=== PATIENT | female | born 1955 | race African-American/Black ===

== ENCOUNTER 2024-02-22 10:47 | Inpatient (IN) | payer MEDICARE, MEDICAID ==
[~2024-02-22] VITALS: Ht 172.7 cm; Wt 149.2 kg
[2024-02-22 11:43] LABS: BASOPHILS % 0.8 % (0.0-2.0); EOSINOPHILS % 0.6 % (0.0-5.0); HEMOGLOBIN. 14.3 g/dL (12.0-16.0); LYMPHOCYTES % 30.9 % (20.0-50.0); MEAN CORPUSCULAR HEMOGLOBIN 27.5 pg (28.0-32.0); MEAN CORPUSCULAR HGB CONC 32.4 g/dL (31.0-37.0); MEAN CORPUSCULAR VOLUME 84.7 fL (81.0-99.0); MEAN PLATELET VOLUME 8.7 fl (7.4-10.4); MONOCYTES % 8.8 % (2.0-8.0); NEUTROPHILS % 58.9 % (40.0-76.0); PLATELET 164 x1000/uL (130-400); RED BLOOD CELL COUNT 5.19 mill/uL (4.2-5.4); RED CELL DISTRIBUTION WIDTH 13.5 % (11.6-14.6); WHITE BLOOD COUNT 4.5 x1000/uL (4.5-11.0)
[2024-02-22 11:55] LABS: INR 1.1; PROTHROMBIN TIME 12.6 sec (9.6-11.0)
[2024-02-22 12:05] LABS: CHLORIDE 100 mEq/L (98-107); POTASSIUM 3.5 mEq/L (3.5-5.1); SODIUM 139 mEq/L (136-145)
[2024-02-22 12:07] LABS: CALCIUM 10.5 mg/dL (8.7-10.4); CARBON DIOXIDE 33 mEq/L (21-32)
[2024-02-22 12:11] LABS: LACTIC ACID 2.3 mmol/L (0.4-2.0); TROPONIN I HIGH SENSITIVITY 19 ng/L (3.0-34)
[2024-02-22 12:12] LABS: CREATININE 1.2 mg/dL (0.6-1.0); GLUCOSE 116 mg/dL (70-105); UREA NITROGEN BLOOD 14 mg/dL (9-23)
[2024-02-22 12:13] LABS: ALBUMIN 4.4 g/dL (3.2-4.8)
[2024-02-22 12:14] LABS: ALANINE AMINOTRANSFERASE 13 IU/L (10-49); ASPARTATE AMINOTRANSFERASE 20 IU/L (<34); BILIRUBIN DIRECT 0.3 mg/dL (<=3.0); BILIRUBIN TOTAL 1.2 mg/dL (0.1-1.0); PROTEIN TOTAL 8.1 g/dL (6.0-8.3)
[2024-02-22] MEDS ORDERED: AZITHROMYCIN 500MG/250ML 250 ML IV STA (12:24)
[2024-02-22] MEDS ORDERED: CEFTRIAXONE 2GM/50ML 50 ML IV ONE (12:30)
[2024-02-22 12:42] VITALS: PULSE 93; RESP 20
[2024-02-22] MEDS: IPRATROPIUM/ALBUTEROL 0.5-3(2.5)MG/3ML NEB HHN ONE (12:42)
[2024-02-22] MEDS: METHYLPREDNISOLONE SOD SUCC 125MG/2ML (ACT-O-VIAL) IV ONE (13:15)
[2024-02-22 13:19] LABS: CLARITY URINE CLEAR (CLEAR); COLOR URINE YELLOW (YELLOW); GLUCOSE URINE 3+ (NEGATIVE); KETONES URINE NEGATIVE (NEGATIVE); LEUKOCYTE ESTERASE URINE NEGATIVE (NEGATIVE); NITRITE URINE NEGATIVE (NEGATIVE); OCCULT BLOOD URINE NEGATIVE (NEGATIVE); PH URINE 7.5 (4.5-8.0); PROTEIN URINE 2+ (NEGATIVE); SPECIFIC GRAVITY URINE 1.013 (1.005-1.030); UROBILINOGEN URINE 0.2 E.U./dL (0.2-1.0)
[2024-02-22] MEDS: CEFTRIAXONE 2GM/50ML 50 ML IV NR (13:20)
[2024-02-22] MEDS: FUROSEMIDE 40MG/4ML VIAL IVP ONE (13:30)
[2024-02-22 13:47] LABS: BACTERIA URINE 1+; HYALINE CASTS URINE 0-5 /lpf; RBC URINE 0-2 /hpf (0-2); SQUAMOUS EPITHELIAL CELL URINE 1+ /lpf (RARE/1+); WBC URINE 0-2 /hpf (0-2); YEAST URINE NONE SEEN
[2024-02-22] MEDS: AZITHROMYCIN 500 MG TABLET PO NR (14:41)
[2024-02-22 16:22] LABS: TROPONIN I HIGH SENSITIVITY 21 ng/L (3.0-34)
[2024-02-22] MEDS ORDERED: EMPA10TA PO (16:56)
[2024-02-22] MEDS ORDERED: AMLO10TA80 PO (16:56)
[2024-02-22] MEDS ORDERED: FURO40TA5 PO (16:56)
[2024-02-22] MEDS ORDERED: ONDANSETRON HCL 4MG/2ML INJ IV PRN (17:00)
[2024-02-22] MEDS ORDERED: DOCUSATE SODIUM 100MG CAPSULE PO PRN (17:00)
[2024-02-22] MEDS ORDERED: APIX5TAB PO (17:33)
[2024-02-22] MEDS: PANTOPRAZOLE SODIUM 40 MG/VIAL IV SCH (17:45)
[2024-02-22] MEDS: LOSARTAN 50 MG TABLET PO SCH (17:45)
[2024-02-22] MEDS: HYDRALAZINE 20MG/ML VIAL IV PRN (17:46)
[2024-02-22] MEDS ORDERED: BUDESONIDE 0.25MG/2ML NEB HHN SCH (18:00)
[2024-02-22 18:11] LABS: CREATINE KINASE 125 IU/L (34-145); PHOSPHORUS 2.6 mg/dL (2.5-4.9)
[2024-02-22] MEDS ORDERED: DEXTROSE 50% WATER 50ML SYRINGE IV PRN (18:45)
[2024-02-22 19:00] LABS: BG BASE EXCESS 3.3 mmol/L (-2.0-3.0); BG CARBOXYHEMOGLOBIN 1.4 % (0.5-1.5); BG DEOXYHEMOGLOBIN 2.7 % (0.0-5.0); BG FRACTION INSPIRED OXYGEN 21; BG METHEMOGLOBIN 0.3 % (0.5-1.5); BG OXYGEN SATURATION 97.3 % (94.0-98.0); BG OXYHEMOGLOBIN 95.6 % (94.0-98.0); BG PH 7.502 (7.350-7.450); BG PO2 84.8 mmHg (83.0-108.0); BG SAMPLE SITE RIGHT RADIAL; BG TOTAL HEMOGLOBIN 15.3 g/dL (12.0-16.0); BG VENT MODE ROOM AIR
[2024-02-22] MEDS: EMPAGLIFLOZIN 10MG TABLET PO SCH (19:12)
[2024-02-22] MEDS: INSULIN LISPRO 100 UNITS/ML SUBCUT SCH (21:00)
[2024-02-22] MEDS ORDERED: ENOXAPARIN 40MG/0.4ML SYR SUBCUT SCH (21:00)
[2024-02-22] MEDS: ACETAMINOPHEN 325MG TABLET PO PRN (21:36)
[2024-02-23] VITALS (7 sets, daily range): BP systolic 116–185; BP diastolic 64–111; PULSE 57–81; RESP 16–20; TEMP 36.3918–37.503; O2SAT 95–100
[2024-02-23] MEDS: BLOOD SUGAR DIAGNOSTIC STRIP TEST SCH (01:50)
[2024-02-23] MEDS: HYDRALAZINE 20MG/ML VIAL IV NR (04:16)
[2024-02-23] MEDS ORDERED: METO-411 PO (07:08)
[2024-02-23 07:24] LABS: POTASSIUM 3.4 mEq/L (3.5-5.1)
[2024-02-23 07:25] LABS: CALCIUM 10.5 mg/dL (8.7-10.4)
[2024-02-23 07:30] LABS: CREATININE 1.5 mg/dL (0.6-1.0)
[2024-02-23 07:34] LABS: THYROID STIMULATING HORMONE 1.24 uIU/mL (0.55-4.78)
[2024-02-23] MEDS: APIXABAN 5 MG TABLET PO SCH (09:00)
[2024-02-23] MEDS ORDERED: AZITHROMYCIN 500 MG TABLET PO SCH (09:00)
[2024-02-23] MEDS: AZITHROMYCIN 250 MG TABLET PO SCH (09:43)
[2024-02-23 09:44] LABS: *AMPHETAMINES SCREEN URINE NEGATIVE (NEGATIVE); *BARBITURATES SCREEN URINE NEGATIVE (NEGATIVE); *BENZODIAZEPINES SCREEN URINE NEGATIVE (NEGATIVE)
[2024-02-23 09:45] LABS: *COCAINE SCREEN URINE NEGATIVE (NEGATIVE); CANNABINOID URINE SCREEN NEGATIVE (NEGATIVE); ECSTASY MDMA SCREEN URINE NEGATIVE (NEGATIVE); METHADONE URINE SCREEN NEGATIVE (NEGATIVE); OPIATES URINE SCREEN NEGATIVE (NEGATIVE); PHENCYCLIDINE URINE SCREEN NEGATIVE (NEGATIVE)
[2024-02-23] MEDS ORDERED: CEFTRIAXONE 2GM/50ML 50 ML IV SCH (14:00)
[2024-02-23] MEDS ORDERED: POTASSIUM CHLORIDE 20 MEQ in DEXT 5% WATER 90 ML IV NR (15:00)
[2024-02-23 16:06] LABS: BASOPHILS % 0.5 % (0.0-2.0); EOSINOPHILS % 0.1 % (0.0-5.0); HEMATOCRIT. 45.2 % (36.0-48.0); HEMOGLOBIN. 14.5 g/dL (12.0-16.0); LYMPHOCYTES % 22.1 % (20.0-50.0); MEAN CORPUSCULAR HEMOGLOBIN 27.3 pg (28.0-32.0); MEAN CORPUSCULAR HGB CONC 32.1 g/dL (31.0-37.0); MEAN PLATELET VOLUME 9.4 fl (7.4-10.4); MONOCYTES % 8.4 % (2.0-8.0); NEUTROPHILS % 68.9 % (40.0-76.0); PLATELET 186 x1000/uL (130-400); RED BLOOD CELL COUNT 5.32 mill/uL (4.2-5.4); RED CELL DISTRIBUTION WIDTH 13.9 % (11.6-14.6); WHITE BLOOD COUNT 7.6 x1000/uL (4.5-11.0)
[2024-02-23] MEDS: ASPIRIN 325MG EC TABLET PO NR (17:00)
[2024-02-23] MEDS: FUROSEMIDE 40MG/4ML VIAL IVP SCH (17:36)
[2024-02-23] MEDS: KCL 20MEQ/100ML PREMIX 100 ML IV NR (17:44)
[2024-02-23] MEDS ORDERED: ATORVASTATIN CALCIUM 40MG TABLET PO SCH (21:00)
[2024-02-23] MEDS ORDERED: SACUBITRIL/VALSARTAN 24MG/26MG TABLET PO SCH (21:00)
[2024-02-23] MEDS: ATORVASTATIN CALCIUM 40MG TABLET PO SCH (22:02)
[2024-02-23] MEDS: CLOPIDOGREL 75MG TABLET PO SCH (22:03)
[2024-02-24 00:30] VITALS: BP 123/111; PULSE 75; RESP 20; TEMP 36.2512
[2024-02-24 04:00] VITALS: BP 137/108; PULSE 88; RESP 18; TEMP 36.22512; O2SAT 100
[2024-02-24 08:00] VITALS: BP 143/98; PULSE 73; RESP 17; TEMP 36.3918; O2SAT 95
[2024-02-24] MEDS ORDERED: METOPROLOL SUCCINATE 50MG ER TABLET PO SCH (09:00)
[2024-02-24] MEDS: ENTRESTO PO SCH (09:00)
[2024-02-24] MEDS ORDERED: SACU1TAB PO (09:45)
[2024-02-24] MEDS ORDERED: ALBU18HF2 IH (09:45)
[2024-02-24] MEDS ORDERED: UMEC1DIS INH (09:45)
[2024-02-24] MEDS: METOPROLOL TARTRATE 25MG TABLET PO SCH (11:16)
[2024-02-24] MEDS: AMLODIPINE 5MG TABLET PO SCH (11:16)
[2024-02-24] MEDS: ASPIRIN 81MG TABLET PO SCH (11:25)
[2024-02-24] MEDS: PANTOPRAZOLE 40MG DR TABLET PO SCH (11:25)
[2024-02-24] MEDS: HYDRALAZINE HCL 10MG TABLET PO PRN (11:26)
[2024-02-24] MEDS: EMPAGLIFLOZIN 10MG TABLET PO SCH (11:32)
[2024-02-24 12:00] VITALS: PULSE 102; RESP 20; TEMP 36.6696; O2SAT 91
[2024-02-24] MEDS ORDERED: ASPIRIN 81MG TABLET PO SCH (12:15)
[2024-02-24 16:00] VITALS: PULSE 71; RESP 20; TEMP 36.78072; O2SAT 96
[2024-02-24] MEDS: ACETAMINOPHEN 325MG TABLET PO PRN (18:23)
[2024-02-24 20:00] VITALS: BP 122/56; PULSE 54; RESP 18; TEMP 36.6696; O2SAT 98
[2024-02-24 22:06] LABS: BASOPHILS % 0.4 % (0.0-2.0); CHLORIDE 99 mEq/L (98-107); EOSINOPHILS % 0.7 % (0.0-5.0); HEMATOCRIT. 41.1 % (36.0-48.0); HEMOGLOBIN. 13.3 g/dL (12.0-16.0); LYMPHOCYTES % 33.9 % (20.0-50.0); MEAN CORPUSCULAR HEMOGLOBIN 27.3 pg (28.0-32.0); MEAN CORPUSCULAR HGB CONC 32.2 g/dL (31.0-37.0); MEAN CORPUSCULAR VOLUME 84.6 fL (81.0-99.0); MEAN PLATELET VOLUME 9.3 fl (7.4-10.4); MONOCYTES % 9.7 % (2.0-8.0); NEUTROPHILS % 55.3 % (40.0-76.0); PLATELET 164 x1000/uL (130-400); POTASSIUM 2.9 mEq/L (3.5-5.1); RED BLOOD CELL COUNT 4.86 mill/uL (4.2-5.4); RED CELL DISTRIBUTION WIDTH 13.8 % (11.6-14.6); SODIUM 137 mEq/L (136-145); WHITE BLOOD COUNT 5.1 x1000/uL (4.5-11.0)
[2024-02-24 22:08] LABS: CARBON DIOXIDE 29 mEq/L (21-32)
[2024-02-24 22:09] LABS: CALCIUM 9.5 mg/dL (8.7-10.4)
[2024-02-24 22:13] LABS: CREATININE 1.6 mg/dL (0.6-1.0); GLUCOSE 108 mg/dL (70-105)
[2024-02-24 22:14] LABS: UREA NITROGEN BLOOD 30 mg/dL (9-23)
[2024-02-24 22:15] LABS: ALANINE AMINOTRANSFERASE 16 IU/L (10-49); ALBUMIN 3.4 g/dL (3.2-4.8); ASPARTATE AMINOTRANSFERASE 29 IU/L (<34)
[2024-02-24 22:16] LABS: BILIRUBIN DIRECT 0.3 mg/dL (<=3.0); BILIRUBIN TOTAL 0.9 mg/dL (0.1-1.0); PROTEIN TOTAL 6.3 g/dL (6.0-8.3)
[2024-02-24 22:30] LABS: HEPATITIS B SURFACE ANTIGEN NEGATIVE (Negative)
[2024-02-24 22:51] LABS: HEPATITIS C AB NON REACTIVE (Neg) (Negative)
[2024-02-25] VITALS: BP 116/88; PULSE 69; RESP 22; TEMP 36.72516; O2SAT 99
[2024-02-25] MEDS: POTASSIUM CHLORIDE 20MEQ TABLET SR PO NR ×2 (03:17→09:51)
[2024-02-25] MEDS: KCL 20MEQ/100ML PREMIX 100 ML IV SCH (03:41)
[2024-02-25 04:00] VITALS: BP 114/85; PULSE 67; RESP 25; TEMP 36.55848; O2SAT 100
[2024-02-25 08:00] VITALS: BP 118/78; PULSE 59; RESP 23; TEMP 36.6696; O2SAT 94
[2024-02-25] MEDS: GUAIFENESIN 200MG/10ML SUGAR FREE UDC PO PRN (08:41)
[2024-02-25 11:53] LABS: BASOPHILS % 0.5 % (0.0-2.0); DIFFERENTIAL COMMENT 0; EOSINOPHILS % 1.1 % (0.0-5.0); HEMOGLOBIN. 14.9 g/dL (12.0-16.0); LYMPHOCYTES % 38.5 % (20.0-50.0); MEAN CORPUSCULAR HEMOGLOBIN 27.1 pg (28.0-32.0); MEAN CORPUSCULAR HGB CONC 31.7 g/dL (31.0-37.0); MEAN CORPUSCULAR VOLUME 85.7 fL (81.0-99.0); MEAN PLATELET VOLUME 9.1 fl (7.4-10.4); MONOCYTES % 11.8 % (2.0-8.0); NEUTROPHILS % 48.1 % (40.0-76.0); PLATELET 182 x1000/uL (130-400); RED BLOOD CELL COUNT 5.48 mill/uL (4.2-5.4); RED CELL DISTRIBUTION WIDTH 13.9 % (11.6-14.6); WHITE BLOOD COUNT 5.4 x1000/uL (4.5-11.0)
[2024-02-25 12:00] VITALS: BP 111/69; PULSE 59; RESP 16; TEMP 36.61404; O2SAT 96
[2024-02-25 12:12] LABS: POTASSIUM 3.7 mEq/L (3.5-5.1)
[2024-02-25 12:13] LABS: POTASSIUM 3.8 mEq/L (3.5-5.1)
[2024-02-25 12:15] LABS: CALCIUM 9.9 mg/dL (8.7-10.4)
[2024-02-25 12:19] LABS: CREATININE 1.5 mg/dL (0.6-1.0)
[2024-02-25] MEDS ORDERED: LORAZEPAM 2MG/ML INJ IV NR (14:30)
[2024-02-25 16:00] VITALS: BP 115/71; PULSE 66; RESP 20; TEMP 36.6696; O2SAT 97
[2024-02-25 20:00] VITALS: BP 106/68; PULSE 66; RESP 22; TEMP 36.50292; O2SAT 96
[2024-02-26] VITALS (8 sets, daily range): BP systolic 105–150; BP diastolic 57–112; PULSE 60–82; RESP 12–23; TEMP 36.50292–36.6696; O2SAT 96–100
[2024-02-26] MEDS: FAMOTIDINE 20MG TABLET PO SCH (08:51)
[2024-02-26 11:08] LABS: BASOPHILS % 0.6 % (0.0-2.0); DIFFERENTIAL COMMENT 0; EOSINOPHILS % 1.7 % (0.0-5.0); HEMATOCRIT. 47.4 % (36.0-48.0); HEMOGLOBIN. 14.8 g/dL (12.0-16.0); LYMPHOCYTES % 44.3 % (20.0-50.0); MEAN CORPUSCULAR HEMOGLOBIN 26.9 pg (28.0-32.0); MEAN CORPUSCULAR HGB CONC 31.2 g/dL (31.0-37.0); MEAN CORPUSCULAR VOLUME 86.3 fL (81.0-99.0); MEAN PLATELET VOLUME 9.2 fl (7.4-10.4); MONOCYTES % 10.6 % (2.0-8.0); NEUTROPHILS % 42.8 % (40.0-76.0); PLATELET 186 x1000/uL (130-400); WHITE BLOOD COUNT 4.9 x1000/uL (4.5-11.0)
[2024-02-26 11:16] LABS: POTASSIUM 3.8 mEq/L (3.5-5.1)
[2024-02-26 11:22] LABS: CREATININE 1.3 mg/dL (0.6-1.0)
[2024-02-26] MEDS ORDERED: ASPI-1160 PO (15:49)
[2024-02-26] MEDS ORDERED: LIP40 PO (15:49)
[2024-02-27] VITALS (9 sets, daily range): BP systolic 89–148; BP diastolic 49–127; PULSE 40–100; RESP 18–26; TEMP 36.33624–37.00296; O2SAT 91–100
[2024-02-27] MEDS: IPRATROPIUM/ALBUTEROL 0.5-3(2.5)MG/3ML NEB HHN SCH (01:23)
[2024-02-27] MEDS: METOPROLOL TARTRATE 25MG TABLET PO SCH (08:53)
[2024-02-28] VITALS (7 sets, daily range): BP systolic 102–138; BP diastolic 64–86; PULSE 57–97; RESP 18–23; TEMP 36.28068–36.78072; O2SAT 82–99
[2024-02-28] MEDS: IPRATROPIUM/ALBUTEROL 0.5-3(2.5)MG/3ML NEB HHN PRN (00:54)
== END 2024-02-28 22:46 | disposition home health service (06) | DRG 64 ==
LOC: ER 10:47 → EDBEDREQ 11:21 → 5WST 14:59 → EDBEDREQ 15:03 → 3WST 02-23 23:41
PROVIDERS: ADMIT Hospitalist; ATTEND Hospitalist
PROC: 4A10X4Z Monitoring of Central Nervous Electrical Activity, External Approach (ICD-10-PCS; principal; 2024-02-28)
DX: I63.9 Cerebral infarction, unspecified (principal); J96.00 Acute respiratory failure, unspecified whether with hypoxia or hypercapnia; N17.9 Acute kidney failure, unspecified; I16.1 Hypertensive emergency; E87.4 Mixed disorder of acid-base balance; E66.2 Morbid (severe) obesity with alveolar hypoventilation; Z68.43 Body mass index [BMI] 50.0-59.9, adult; R17 Unspecified jaundice; Z20.822 Contact with and (suspected) exposure to COVID-19; E78.5 Hyperlipidemia, unspecified; Z79.01 Long term (current) use of anticoagulants; N18.9 Chronic kidney disease, unspecified; E83.52 Hypercalcemia; I50.9 Heart failure, unspecified; I11.0 Hypertensive heart disease with heart failure; E87.6 Hypokalemia; J10.1 Influenza due to other identified influenza virus with other respiratory manifestations; R47.1 Dysarthria and anarthria; I48.0 Paroxysmal atrial fibrillation; R73.9 Hyperglycemia, unspecified; F40.240 Claustrophobia; J44.9 Chronic obstructive pulmonary disease, unspecified; Z53.20 Procedure and treatment not carried out because of patient's decision for unspecified reasons; Z79.82 Long term (current) use of aspirin; Z79.84 Long term (current) use of oral hypoglycemic drugs; Z82.49 Family history of ischemic heart disease and other diseases of the circulatory system; Z87.891 Personal history of nicotine dependence; Z79.899 Other long term (current) drug therapy
CPT/HCPCS: 36415; 36600; 71045; 80048; 80061; 80076; 80305; 81003; 82375; 82550; 82805; 82962; 83036; 83605; 83735; 83880; 84100; 84132; 84145; 84443; 84484; 85025; 86705; 87340; 87426; 87804; 93005; 93306; 93880; 94070; 94640; 95816; 97110; 97162; 97166; 97535; 98960; 99291; J0360; J0696; J1940; J2470; J2919; J3480; J7060; J7626